=== PATIENT | female | born 1945 | race Caucasian/White ===

== ENCOUNTER → 2017-02-18 | Outpatient (REF) | payer MEDICARE, BC ==
[~2017-02-18] MED LIST: ACET160S3 PO; ACET160S5 PO; AMLO5TAB2 PO; ASPI81CH PO; AVAP300T23 PO; CALC600T71 PO; CENTTAB47 PO; CHLO25TA PO; COLA100C3 PO; CORE3.12 PO; LORA2CON5 PO; LORT5TAB PO; OMEG12002 PO; SPIR25TA2 PO; SYST1SOL OD; TYLE325T5 PO; VITA1CAP2 PO; VITA500C24 PO; [UNRECOGNIZED DRUG - CODE] PO; [UNRECOGNIZED DRUG - CODE] TOP
== END ==
LOC: M SFHCPLAZ 14:15
PROVIDERS: ATTEND Dermatology
DX: C44.602 Unspecified malignant neoplasm of skin of right upper limb, including shoulder (principal); L57.0 Actinic keratosis
CPT/HCPCS: 11100; 11101; 88305; G0463

== ENCOUNTER → 2017-04-16 | Outpatient (REF) | payer MEDICARE, BC | LOC: M LAB REF 16:30 | PROVIDERS: ATTEND Surgery | DX: D23.61 Other benign neoplasm of skin of right upper limb, including shoulder (principal) ==

== ENCOUNTER → 2021-07-17 | Outpatient (CLI) | payer MEDICARE, BC ==
[~2021-07-17] MED LIST changes: +ACET-1439 PO; -ACET160S5 PO; +AMLO1TAB24 PO; -AMLO5TAB2 PO; -ASPI81CH PO; +ASPI81CH49 PO; +CALC1TAB5 PO; -CALC600T71 PO; +CHLO125TA PO; -CHLO25TA PO; -COLA100C3 PO; +COLA100C5 PO; +MAGN400C2 PO; +META28.32 PO; +SPIR-10 PO; -SPIR25TA2 PO; +TUMS750C5 PO; +VITA-183 PO; -VITA1CAP2 PO
[2021-07-17 15:24] VITALS: BP 150/78
--- NOTE | 2021-07-22 16:36 | ROOPDOC ---
[facility] Report Of Operation Report of Operation DATE OF PROCEDURE: 07/17/2021 DIAGNOSIS: Left abnormal axillary lymph node PROCEDURE: Ultrasound guided left abnormal axillary lymph node biopsy with clip placement SURGEON: Deanna Brooks BLOOD LOSS: minimal COMPLICATIONS: none Lidocaine 1% LOT [id number] Expiration 12/2024 Sodium Bicarbonate 8.4% LOT [id number] Expiration 11/2021 Hydromark clip LOT [id number] Expiration 01/2024 SHAPE 4 Bx device: TEMNO 18G x 20 cm LOT [id number] Expiration 11/2024 Informed consent was obtained. The most common risk and possible complications including bleeding, hematoma, bruising, infection, injury to surrounding structures were explained to the patient and the patient expressed und erstanding. Patient was placed on the bed in the supine position. Appropriate time out was done stating patients name, date of , and the procedure to be performed. The left axilla was prepped and draped in the usual fashion. The ultrasound was used to confirm the location of enlarged lymph node with cortex measuring over 4 mm. Plain Lidocaine 1% and 8.4% sodium bicarbonate 10:1 mix was used to anesthetize the skin, the biopsy site and tissues along the anticipated biopsy tract. Small skin incision was made with blade number 11. Temno 18G cannula with introducer was inserted through the incision and advanced under the ultrasound guidance to position immediately adjacent to the enlarged lymph node with 4 mm cortex. Next, the introducer was removed and Temno 18G biopsy device was places in the cannula. Pre-biopsy imaging, and post-biopsy imaging were captured. Five good core biopsies were taken at various levels of the lesion. Specimen was placed in formaldehyde, labeled with appropriate biopsy site and patients name, and sent to pathology for evaluation. Next, the biopsy device and cannula were withdrawn and a clip introducer was inserted into the position immediately adjacent to the biopsied lymph node. The SHAPE 4 Hydromark clip was deployed under sonographic guidance. Post-clip placement image was captured. Manual pressure over the biopsy cavity and tract was held after the clip introducer was withdrawn. No bleeding was noted upon removal of the pressure. Post-procedure mammogram was not done as the clip was visible in the lymph node and there is low probability that this lymph node will be seen on the mammogram. Postprocedural dressing was placed. Patient tolerated procedure well. Discharge instructions were discussed with the patient and the patient expressed understanding. DEANNA BROOKS DO Jul 22, 2021 16:36
== END ==
LOC: M WHCPRO 09:07
PROVIDERS: ATTEND Surgery
DX: Z01.811 Encounter for preprocedural respiratory examination (principal); C50.912 Malignant neoplasm of unspecified site of left female breast; I51.7 Cardiomegaly; I70.0 Atherosclerosis of aorta; M85.80 Other specified disorders of bone density and structure, unspecified site

== ENCOUNTER → 2021-07-17 | Outpatient (CLI) | payer MEDICARE, BC ==
--- NOTE | 2021-07-17 13:05 | REP ---
INDICATION: ENCOUNTER FOR PREPROCEDURAL RESPIRATORY EXAMINATION COMPARISON: 12/17/2018. TECHNIQUE: PA/Lateral FINDINGS: Lungs: Clear, no infiltrate. Heart: Mildly enlarged. Mediastinum: Calcific plaque is seen in the thoracic aorta. The mediastinal silhouette is unchanged. Pleural angles: Unremarkable.. Bones and soft tissues: There is osteopenia. IMPRESSION: No acute pulmonary disease. Mild cardiomegaly. <Electronically signed by Bert Barbosa > 07/17/21 [id number]
== END ==
LOC: M PLAIMG 12:36
PROVIDERS: ATTEND Surgery
DX: Z01.811 Encounter for preprocedural respiratory examination (principal); I51.7 Cardiomegaly; I70.0 Atherosclerosis of aorta; M85.80 Other specified disorders of bone density and structure, unspecified site

== ENCOUNTER → 2021-08-01 | Outpatient (CLI) | payer MEDICARE, BC ==
[~2021-08-01] MED LIST changes: +ASPECRE TOP; +CALCCAP4 PO; +LAMI1SPR EX; +MULTTAB61 PO
== END ==
LOC: M LABSMTC 11:27
PROVIDERS: ATTEND Anesthesiology
DX: Z01.812 Encounter for preprocedural laboratory examination (principal); Z20.822 Contact with and (suspected) exposure to COVID-19

== ENCOUNTER 2021-08-06 07:03 | Day surgery (SDC) | payer MEDICARE, BC ==
[~2021-08-06] VITALS: Ht 161.5 cm; Wt 80.3 kg
[~2021-08-06 07:03] MED LIST changes: +HEPARIN SOD (PORCINE) 5000UNITS/ML 1ML VIAL/SYRINGE SQ ONE; +LR 1,000 ML IV ONE; +ceFAZolin SOD 2 GM in IV 1 EA IV ONE
[2021-08-06] MEDS ORDERED: dexameTHASONE 4 MG/ML 1ML VIAL (J1100 PER 1MG) As Ordered ONE (08:09)
[2021-08-06] MEDS ORDERED: propofoL 200 MG/20 ML VIAL As Ordered ONE (08:09)
[2021-08-06] MEDS ORDERED: LIDOCAINE 2% 100MG/5ML SDV (FOR ANES.) As Ordered ONE (08:09)
[2021-08-06] MEDS ORDERED: METOCLOPRAMIDE INJ 10MG/2ML VIAL (J2765 PER 1) As Ordered ONE (08:09)
[2021-08-06] MEDS ORDERED: fentaNYL 100 MCG/2 ML INJECTION (J3010) As Ordered ONE ×2 (08:09→10:33)
[2021-08-06] MEDS ORDERED: ONDANSETRON 4MG/2ML VIAL As Ordered ONE (08:09)
[2021-08-06] MEDS ORDERED: MIDAZOLAM INJ 2MG/2ML VIAL (J2250 PER 1MG) As Ordered ONE (08:09)
[2021-08-06] MEDS ORDERED: LIDOCAINE 1% SDV 30ML VIAL As Ordered ONE (09:34)
[2021-08-06] MEDS ORDERED: BUPIVACAINE HCL 0.25% 30ML VIAL As Ordered ONE (09:34)
[2021-08-06] MEDS ORDERED: LABETALOL 100MG/20ML VIAL As Ordered ONE (10:08)
[2021-08-06] MEDS ORDERED: ACETAMINOPHEN 1000MG 100ML IV BTL (OFIRMEV) (J0131 PER 10MG) As Ordered ONE (10:12)
[2021-08-06] MEDS ORDERED: ULTR50TA8 PO (12:46)
[2021-08-06] MEDS ORDERED: ONDANSETRON 4MG/2ML VIAL IV PRN (12:55)
[2021-08-06] MEDS ORDERED: fentaNYL 100 MCG/2 ML INJECTION (J3010) IV PRN (12:55)
[2021-08-06] MEDS ORDERED: oxyCODONE 5MG TAB PO PRN (12:55)
[2021-08-06] MEDS ORDERED: LR 1,000 ML IV SCH (12:55)
[2021-08-06 13:30] VITALS: BP 156/73
--- NOTE | 2021-08-11 21:49 | ROOPDOC ---
[facility] Report Of Operation Report of Operation DATE OF PROCEDURE: 08/11/21 PREPROCEDURE DIAGNOSES: Left breast cancer POSTPROCEDURE DIAGNOSES: same PROCEDURE PERFORMED: Left breast lumpectomy with intraop wire placement and interpretation of intraop radiography of the specimen SURGEON: Dr Deanna Brooks ANESTHESIA: general ESTIMATED BLOOD LOSS: Approximately 25 mL. COMPLICATIONS: none REMARKS: nonhydromark clip identified in the specimen PROCEDURE NOTE: INDICATIONS: Ms. Rivero is a 76-year-old woman who was found to have a suspicious left breast mass. This was evaluated with diagnostic imaging and sonographic correlate was found. US guided biopsy of the left breast mass done at [facility] came back as Left breast cancer, IDC ER/AZ +, Her2 negative. Nonhydromark clip was placed in the mass. She underwent MRI of the breast an no additional suspicious lesions were seen. On exam there was more prominent left axillary lymph node noted with some irregular and mildly enlarged cortex. This was biopsied and no malignancy was found. We have discussed surgical options and she opted for breast conservative surgery. Due to patients age she opted out of sentinel lymph node biopsy per [employer]. She was medically cleared for surgery by her primary care doctor. Risks and possible complications of surgical procedure including bleeding, infection and injury to surrounding structures were explained to the patient and she wished to proceed. Consent was signed. My initials were placed on the operative site. Subcutaneous injection of 5000 units of heparin was done in Preop. DETAILS: Patient was taken to the operating room and placed on the operating room table. A sign in was called stating patients name, date of and the procedure to be done. Preoperative antibiotics were infused. Smooth induction of general anesthesia was done. Patients hands were extended on arm rests. Care was taken not to over extend the arms. Pillow was placed under the knees and a foam was placed under the heels. Sequential compression devices were placed and assured to function correctly. Procedure was started with left breast intraop wire localization. Appropriate time out was done and patients name, date of , and the procedure to be done were confirmed. Left breast was cleaned by me. Intraoperative ultrasound was used to confirm location of the mass. Location of the clip was marked on the skin as well. 21 G K[place]ans Breast Lesion Localization Needle was used to place 25 cm wire through the lesion. The end of the wire was passed a centimeter deep. The images were captured confirming adequate placement of the localizing wire. Project Admin assisted with the wire placement. Next, our attention was turned toward the left breast. Left breast and axilla were cleaned again and second time out was done. Local anesthetic using 1% lidocaine and 0.25 % Marcaine 50/50 mix was injected at the site of planned periareolar incision. The incision was made with the scalpel. Subcutaneous skin flaps were raised and the guide wire was carefully pulled into the wound. Dissection was carries along the wire until the previously marked on the skin area of target lesion location was encountered. At this point, wider excision of the tissue surrounding the wire was done. The mass was identified in the tissue with intraoperative hockey stick ultrasound probe. The end of the wire was identified with palpation. The lumpectomy specimen was carefully removed from the breast keeping its proper orientation and moved to the back table where margins were marked with the surgical inking kit following the standard colors recommendations. Specimen was then placed on the grid and placed in [employer] Specimen Imaging System. The image revealed the wire and the clip and the mass in the specimen. The specimen was labeled with patients name and left lumpectomy and sent to pathology. The specimen measured 6x4x3 cm. Upon examination of intraop specimen radiography, it was noted that all margins except deep margin appear relatively close. Decision was made to excise additional margins: inferior, superior, medial, anterior and lateral. All new margins, defined as margin farthest away from lumpectomy cavity, were marked with black ink. Each margin was sent as a separate specimen with appropriate labeling. Wound was thoroughly irrigated. Adequate hemostasis was assured. Additional local anesthetic was injected into surrounding tissues. Five clips were placed to randall the cavity. space was approximated with 2-0 Vicryl. The dermis was closed with 3-0 Vicryl and skin was closed with 4-0 Monocryl. Surgical glue was placed over the incision. Patient emerged from the anesthesia without any problems. Fluffs were placed over the operative site and patients chest was wrapped snuggly in the RENY wrap. Sponge and instrument counts were done and were correct. Patient tolerated procedure well and was taken to recovery unit in stable condition. DEANNA BROOKS DO Aug 11, 2021 21:49
== END 2021-08-06 14:15 | disposition home or self-care (01) ==
LOC: M SDC 07:03
PROVIDERS: ATTEND Surgery
DX: C50.912 Malignant neoplasm of unspecified site of left female breast (principal); R59.0 Localized enlarged lymph nodes; Z17.0 Estrogen receptor positive status [ER+]; Z80.9 Family history of malignant neoplasm, unspecified; Z92.29 Personal history of other drug therapy; Z79.01 Long term (current) use of anticoagulants; Z88.8 Allergy status to other drugs, medicaments and biological substances; I10 Essential (primary) hypertension; F41.9 Anxiety disorder, unspecified
CPT/HCPCS: 19125; 36415; 76942; 86850; 86900; 86901; 88305; 88307; J0131; J0690; J1100; J1644; J2250; J2405; J2765; J3010

== ENCOUNTER → 2021-09-05 | Outpatient (CLI) | payer MEDICARE, BC ==
[~2021-09-05] MED LIST changes: +CENT1TAB7 PO; -HEPARIN SOD (PORCINE) 5000UNITS/ML 1ML VIAL/SYRINGE SQ ONE; -LR 1,000 ML IV ONE; +ULTR50TA8 PO; -ceFAZolin SOD 2 GM in IV 1 EA IV ONE
--- NOTE | 2021-09-05 12:55 | RADONC.CN ---
Radiation Oncology Hx/Consult Radiation Oncology Consult Date of Service: Sep 05, 2021 Pt Identifier Abby Rivero is a 76 year old female with screening mammogram detected left breast cancer [id number] ER/NM+ HER2- grade 2. She is s/p lumpectomy without SLNB with Dr. Brooks on 08/06/21 and she is seen for consideration of adjuvant RT. Diagnosis/Treatment History Oncologic History 06/14/21 Mammogram with left 2:00 asymmetry 06/24/21 US showing 1.9 cm mass in this location, biopsy showing IDC ER/NM+ HER2- grade 2 07/05/21 MRI 2.2 left 2:00 lesion, no lymphadenopathy 07/17/21 Left axillary node biopsy negative ([place]) 08/06/21 Lumpectomy without SLNB showing pT2NX margins negative Breast history: OCP x 6 years Menses @ 12 Menopause @ 44 (surgical) No HRT No IVF Interval History Here with her supportive daughter. She reports no residual tenderness or pain in the left breast. She has no impaired ROM post-operatively. Her appetite has been off, she attributes to stress. She has baseline anxiety/depression and joint pains, which are functionally limiting, because of these conditions and the possible side effects of AI, she is hesitant to take an AI. Past Medical History: Anxiety/depression GERD HPL HTN Osteoarthritis DVT TMJ Past Surgical History: Hysterectomy Ventral hernia repair Family History: Paternal grandmother colon cancer Social History: Never smoker Never drinker Allergies / Meds Allergies: Coded Allergies: naproxen (Verified Adverse Reaction, Mild, DECREASE ENERGY, SHE FEELS "OFF", 08/05/21) Home Meds Active Scripts Tramadol HCl (Ultram) 50 Mg Tablet, 50 MG PO Q6H PRN for PAIN MDD 4, #10 TAB MDD 4 Prov:DEANNA BROOKS DO 08/06/21 Reported Medications Multivitamin/Iron/Folic Acid (Centrum Women Tablet) 1 Each Tablet, 1 EACH PO BID, TAB 09/05/21 Trolamine Salicylate/Aloe Vera (Aspercreme 10% Cream) 10% Cream..g., 1 APLCT TOP PRN for 14 Days, #35.4 GRAM 07/29/21 Calcium Carbonate (Tums) 300 Mg Tab.chew, 750 MG PO PRN, CHW 07/29/21 Chlorthalidone (Chlorthalidone) 25 Mg Tablet, 1 TAB PO DAILY for 30 Days, #30 TAB 07/29/21 Calcium Carbonate/Vitamin D3 (Calcium 600 + Vit D 400 Softgl) 1 Each Capsule, 1 CAP PO BID for 30 Days, #60 CAP 07/29/21 Terbinafine HCl (Lamisil) 125 Ml [place], 1 % EX PRN, CONTAINER 07/29/21 Magnesium Oxide (Magnesium) 400 Mg Capsule, 1 CAP PO DAILY for constipation for 30 Days, #30 CAP 07/17/21 Psyllium Husk (with Sugar) (Metamucil Powder) 575 Gm Powder, 3 TBS PO DAILY for 30 Days, ML 07/17/21 Ascorbic Acid (Vitamin C) 500 Mg Cap, 1 TAB PO DAILY, CAP 01/09/15 Lorazepam (Lorazepam) 2 Mg/Ml Con, 1 MG PO DAILY PRN for ANXIETY, CON 01/09/15 Spironolactone (Spironolactone) 25 Mg Tab, 25 MG PO DAILY, TAB 01/09/15 Amlodipine Besylate (Amlodipine Besylate) 5 Mg Tab, 1 TAB PO DAILY, TAB 01/09/15 Irbesartan (Avapro) 300 Mg Tab, 1 TAB PO DAILY, TAB 01/09/15 Carvedilol (Coreg) 3.125 Mg Tab, 1 TAB PO BID, TAB 01/09/15 Propylene Glycol/Peg 400 (Systane 0.3-0.4% Eye Drops) 15 Ml Liz, 3 DROP OD BID, LIZ 01/09/15 Discontinued Reported Medications Multivitamin (Multivitamins) 1 Each Tablet, 1 TAB PO DAILY, TAB 07/29/21 Review of Systems Constitutional: Reports: Fatigue; Denies: Weight Loss HEENT: Denies: Head Aches Skin: Denies: Rash Pulmonary: Denies: Dyspnea Cardiovascular: Denies: Chest Pain Breast: Denies: New Breast Lumps / Masses, Nipple Retraction, Nipple Discharge, Breast Skin Changes Gastrointestinal: Denies: Abdominal Pain Musculoskeletal: Reports: Joint pain; Denies: Neck pain, Back pain Neurological: Denies: Weakness, Numbness Psych: Reports: Mood Normal Vital Signs Ht 64" Wt 172 lbs BMI 29.5 T 98 P 64 RR 18 BP 165/74 O2 99% Pain 0 Fatigue 3 General Exam: Alert, Cooperative, No Acute Distress Eye Exam: PERRLA, EOMI ENT EXAM: Atraumatic Neck Exam: Supple; Negative: Lymphadenopathy Chest Exam: Clear to auscultation Heart Exam: Rate Normal Breast Exam: Symmetric Bilaterally (ptosis); Negative: Lumps or Masses (Palpable seroma left central breast. No axillary masses BL. No right breast lesions. ) Extremity Exam: Negative: Edema Skin Exam: Nl turgor and temperature Neuro Exam: Normal Gait, Normal Speech, Cranial Nerves 3-12 NL Psych Exam: Mental status NL Diagnostic and Laboratory Diagnostic Review Radiologic images, relevant labs and pathology reports were personally reviewed and discussed with Ms. Rivero. Assessment and Plan Impression Ms. Rivero is a 76 year old female with a history of screening mammogram detected left breast cancer [id number] ER/NM+ HER2- grade 2. She is s/p lumpectomy without SLNB with Dr. Brooks on 08/06/21 and she is seen for consideration of adjuvant RT. Stage left upper outer breast cancer [id number] ER/NM+ HER2- grade 2 IDC Performance Status ECOG 1 Plan We had an extensive discussion with Ms. Rivero regarding the diagnosis at hand and available therapeutic options. She expressed several concerns regarding toxicity of treatment, so we focused on risk versus benefit. The benefit is reduced risk in breast recurrence, there is no OS benefit in her age group. The risks are skin reaction, fibrosis, and fatigue. I discussed that omission of RT would be appropriate given her age and pathology. The only complicating factory is that she stated she is hesitant to take the AI for fear of side effects. I encouraged her to try the AI at least, given that if there are side effects they are likely to resolve if she discont inues the medication. For radiation as an alternative to omission I think she would be appropriate for partial breast RT given her aversion to side effects. I discussed 40 Gy in 15 fractions per IMPORT LOW versus 26 Gy in 5 fractions per FAST FORWARD. The control rates appear equivalent with these regimens however the 15 fraction regimen is older and better studied. We discussed the logistics of receiving radiation therapy in detail including the need for a 1-time planning session. After discussing the risks, benefits and alternatives to radiation therapy, Ms. Rivero was amenable to considering RT further prior to deciding. She will alert us of her ultimate decision regarding RT. All questions were answered to the patient's satisfaction. We instructed the patient that if there were any questions,concerns or changes in clinical status in the interim to contact us. Recommendations APBI as discussed versus omission of RT, patient to decide and alert us Simulation can be facilitated within a week of her decision Billing Statement Total time of [48] minutes was spent preparing for the visit [3], obtaining HPI [7], examining the patient [4], reviewing diagnostic tests [3], discussing management options [22], coordinating care [2], and writing this note [7]. HAO HOLM MD Sep 05, 2021 12:55
== END ==
LOC: M ONCR 09:59
PROVIDERS: ATTEND General Practice
DX: C50.412 Malignant neoplasm of upper-outer quadrant of left female breast (principal); Z88.8 Allergy status to other drugs, medicaments and biological substances; Z79.891 Long term (current) use of opiate analgesic

== ENCOUNTER → 2021-09-11 | Outpatient (CLI) | payer MEDICARE, BC ==
--- NOTE | 2021-09-11 14:09 | RADENCPD ---
Date/Time of Encounter Date of Encounter: Sep 11, 2021 Time of Encounter: 14:07 Encounter Abby came in to discuss her RT course. I answered additional questions regarding the efficacy data supporting partial breast RT as well as questions about the magnitude and time course of side effects. She was pleased and will proceed with planning on Thursday. HAO HOLM MD Sep 11, 2021 14:09
== END ==
LOC: M ONCR 12:58
PROVIDERS: ATTEND General Practice
DX: C50.919 Malignant neoplasm of unspecified site of unspecified female breast (principal)

== ENCOUNTER 2021-09-16 13:02 | Outpatient (RCR) | payer MEDICARE, BC | END 2021-09-24 | LOC: M ONCR 13:02 | PROVIDERS: ATTEND General Practice | DX: C50.412 Malignant neoplasm of upper-outer quadrant of left female breast (principal) ==

== ENCOUNTER 2021-10-03 12:00 | Outpatient (RCR) | payer MEDICARE, BC | END 2021-10-25 | LOC: M ONCR 12:00 | PROVIDERS: ATTEND General Practice | DX: C50.412 Malignant neoplasm of upper-outer quadrant of left female breast (principal); M25.569 Pain in unspecified knee; G89.29 Other chronic pain ==

== ENCOUNTER → 2022-04-02 | Outpatient (CLI) | payer MEDICARE, BC | LOC: M ONCR 10:06 | PROVIDERS: ATTEND General Practice | DX: C50.412 Malignant neoplasm of upper-outer quadrant of left female breast (principal); Z92.3 Personal history of irradiation; Z88.6 Allergy status to analgesic agent; Z79.899 Other long term (current) drug therapy ==

== ENCOUNTER → 2022-06-16 | Outpatient (CLI) | payer MEDICARE, BC | LOC: M WHC 12:39 | PROVIDERS: ATTEND Surgery | DX: Z85.3 Personal history of malignant neoplasm of breast (principal) | CPT/HCPCS: 77066; G0279 ==

== ENCOUNTER → 2023-04-02 | Outpatient (CLI) | payer MEDICARE, BC | LOC: M ONCR 09:55 | PROVIDERS: ATTEND General Practice | DX: Z08 Encounter for follow-up examination after completed treatment for malignant neoplasm (principal); Z85.3 Personal history of malignant neoplasm of breast; N60.32 Fibrosclerosis of left breast; Z71.2 Person consulting for explanation of examination or test findings; Z79.891 Long term (current) use of opiate analgesic; Z79.899 Other long term (current) drug therapy; Z88.6 Allergy status to analgesic agent; Z92.3 Personal history of irradiation ==

== ENCOUNTER → 2023-05-12 | Outpatient (CLI) | payer MEDICARE, BC | LOC: M WHC 13:52 | PROVIDERS: ATTEND Internal Medicine | DX: R42 Dizziness and giddiness (principal); I65.23 Occlusion and stenosis of bilateral carotid arteries ==

== ENCOUNTER → 2023-06-18 | Outpatient (CLI) | payer MEDICARE, BC | LOC: M WHC 09:11 | PROVIDERS: ATTEND Nurse Practitioner Women's Health | DX: Z85.3 Personal history of malignant neoplasm of breast (principal) | CPT/HCPCS: 77066; G0279 ==

== ENCOUNTER → 2024-04-05 | Outpatient (CLI) | payer MEDICARE, BC ==
[~2024-04-05] MED LIST changes: +ECOT81TA5 PO; +SYST1SOL4 OP
== END ==
LOC: M ONCR 10:50
PROVIDERS: ATTEND General Practice
DX: Z08 Encounter for follow-up examination after completed treatment for malignant neoplasm (principal); Z85.3 Personal history of malignant neoplasm of breast; Z71.2 Person consulting for explanation of examination or test findings; Z79.82 Long term (current) use of aspirin; Z79.899 Other long term (current) drug therapy; Z88.6 Allergy status to analgesic agent; Z92.3 Personal history of irradiation

== ENCOUNTER → 2024-06-21 | Outpatient (CLI) | payer MEDICARE, BC | LOC: M WHC 09:34 | PROVIDERS: ATTEND Nurse Practitioner Women's Health | DX: Z85.3 Personal history of malignant neoplasm of breast (principal); R92.323 Mammographic fibroglandular density, bilateral breasts | CPT/HCPCS: 77066; G0279 ==

== ENCOUNTER → 2025-03-15 | Outpatient (CLI) | payer MEDICARE, BC | LOC: M WHC 07:31 | PROVIDERS: ATTEND Internal Medicine Medical Oncology | DX: C50.912 Malignant neoplasm of unspecified site of left female breast (principal); R92.312 Mammographic fatty tissue density, left breast; R59.0 Localized enlarged lymph nodes; N63.20 Unspecified lump in the left breast, unspecified quadrant | CPT/HCPCS: 76642; 77066; G0279 ==

== ENCOUNTER → 2025-05-23 | Outpatient (CLI) | payer MEDICARE, BC ==
[~2025-05-23] MED LIST changes: +LORA1TAB23 PO; +TRAM50TA2 PO
== END ==
LOC: M ONCM 09:03
PROVIDERS: ATTEND Dietitian, Registered
DX: C50.912 Malignant neoplasm of unspecified site of left female breast (principal); Z71.3 Dietary counseling and surveillance; Z68.28 Body mass index [BMI] 28.0-28.9, adult

== ENCOUNTER 2025-05-25 10:28 | Observation (INO) | payer MEDICARE, BC ==
[2025-05-25] VITALS (8 sets, daily range): BP systolic 122–157; BP diastolic 57–73; TEMP 97.7–98.6; O2SAT 93–99
[~2025-05-25] VITALS: Ht 165.1 cm; Wt 75.6 kg
[~2025-05-25 10:28] MED LIST changes: +ACETAMINOPHEN 1000MG/100ML IV BAG As Ordered ONE; +LIDOCAINE 2% 100 MG/5 ML SDV (FOR ANES.) As Ordered ONE; -LORA1TAB23 PO; +ONDANSETRON 4MG 2ML VIAL As Ordered ONE; -TRAM50TA2 PO; +dexAMETHasone 4 MG/ML 1 ML VIAL As Ordered ONE
[2025-05-25] MEDS ORDERED: LR 1,000 ML IV SCH (10:45)
[2025-05-25] MEDS: ceFAZolin SOD 2 GM IV ONCE IV ONE (12:32)
[2025-05-25] MEDS ORDERED: GLYCOPYRROLATE INJ 0.2 MG/ML 2 ML VIAL As Ordered ONE (12:48)
[2025-05-25] MEDS ORDERED: diphenhydrAMINE 50 MG/ML VIAL IV PRN (15:20)
[2025-05-25] MEDS ORDERED: HYDROMORPHONE HCL 0.5 MG/0.5 ML SYRINGE IV PRN (15:20)
[2025-05-25] MEDS: LR 1,000 ML IV SCH ×2 (15:20→15:30)
[2025-05-25] MEDS ORDERED: traMADol 50 MG TAB PO PRN (15:30)
[2025-05-25] MEDS ORDERED: ACETAMINOPHEN 325 MG TAB PO PRN (15:30)
[2025-05-25] MEDS ORDERED: ONDANSETRON 4MG 2ML VIAL IV PRN (15:30)
[2025-05-25] MEDS ORDERED: MIRALAX *UNIT DOSE* 17 GM PACKET PO PRN (15:40)
[2025-05-25] MEDS: DOCUSATE SODIUM 100 MG CAPSULE PO SCH (21:00)
[2025-05-25] MEDS ORDERED: LORA1TAB23 PO (21:57)
[2025-05-25] MEDS ORDERED: HOME MED LIST COMPLETE! XX SCH (22:00)
[2025-05-25] MEDS: IRBESARTAN 150 MG TAB PO SCH (22:56)
[2025-05-26 02:00] VITALS: BP 131/55; TEMP 97.5; O2SAT 97
[2025-05-26 05:03] VITALS: BP 131/57; TEMP 97.9; O2SAT 95
[2025-05-26 08:17] VITALS: BP 137/66; TEMP 98.4; O2SAT 96
[2025-05-26 09:23] VITALS: BP 140/65
[2025-05-26] MEDS: amLODIPine 5 MG TAB PO SCH (09:23)
[2025-05-26] MEDS: SPIRONOLACTONE 25 MG TAB PO SCH (09:23)
[2025-05-26] MEDS ORDERED: TRAM50TA2 PO (10:25)
[2025-05-26 11:58] VITALS: BP 144/64; TEMP 98.6; O2SAT 97
== END 2025-05-26 12:35 | disposition home or self-care (01) ==
LOC: M SDC 10:28 → M MSPAV 10:29
PROVIDERS: ADMIT Surgery; ATTEND Surgery
DX: C50.112 Malignant neoplasm of central portion of left female breast (principal); I10 Essential (primary) hypertension; F41.9 Anxiety disorder, unspecified; F32.A Depression, unspecified; Z92.3 Personal history of irradiation; Z79.82 Long term (current) use of aspirin; Z79.899 Other long term (current) drug therapy; Z88.8 Allergy status to other drugs, medicaments and biological substances
CPT/HCPCS: 14301; 14302; 19302; 88307; 94760; 96360; 96361; 97116; 97161; G0378; J0131; J0690; J1100; J1596; J2405; J3010

== ENCOUNTER → 2025-06-05 | Outpatient (CLI) | payer MEDICARE, BC ==
[~2025-06-05] MED LIST changes: -ACETAMINOPHEN 1000MG/100ML IV BAG As Ordered ONE; -LIDOCAINE 2% 100 MG/5 ML SDV (FOR ANES.) As Ordered ONE; +LORA1TAB23 PO; -ONDANSETRON 4MG 2ML VIAL As Ordered ONE; +TRAM50TA2 PO; -dexAMETHasone 4 MG/ML 1 ML VIAL As Ordered ONE
== END ==
LOC: M WHC 10:28
PROVIDERS: ATTEND Internal Medicine Medical Oncology
DX: Z78.0 Asymptomatic menopausal state (principal); M85.80 Other specified disorders of bone density and structure, unspecified site

== ENCOUNTER → 2025-06-14 | Outpatient (CLI) | payer MEDICARE, BC | LOC: M ONCR 13:31 | PROVIDERS: ATTEND General Practice | DX: C50.012 Malignant neoplasm of nipple and areola, left female breast (principal); C77.3 Secondary and unspecified malignant neoplasm of axilla and upper limb lymph nodes; Z98.890 Other specified postprocedural states; Z92.3 Personal history of irradiation; Z17.0 Estrogen receptor positive status [ER+]; Z17.21 Progesterone receptor positive status; Z17.32 Human epidermal growth factor receptor 2 negative status; Z88.6 Allergy status to analgesic agent; Z79.899 Other long term (current) drug therapy ==

== ENCOUNTER 2025-06-22 10:47 | Outpatient (RCR) | payer MEDICARE, BC | END 2025-06-25 | LOC: M ONCR 10:47 | PROVIDERS: ATTEND General Practice | DX: Z51.0 Encounter for antineoplastic radiation therapy (principal); C50.412 Malignant neoplasm of upper-outer quadrant of left female breast ==

== ENCOUNTER → 2025-07-25 | Outpatient (RCR) | payer MEDICARE, BC | LOC: M ONCR 06-27 09:50 | PROVIDERS: ATTEND General Practice | DX: Z51.0 Encounter for antineoplastic radiation therapy (principal); C50.412 Malignant neoplasm of upper-outer quadrant of left female breast ==

== ENCOUNTER 2025-07-28 12:58 | Outpatient (RCR) | payer MEDICARE, BC ==
[2025-08-23] MEDS ORDERED: TAMO20TA8 PO (08:53)
== END 2025-08-25 ==
LOC: M ONCR 12:58
PROVIDERS: ATTEND General Practice
DX: Z51.0 Encounter for antineoplastic radiation therapy (principal); C50.412 Malignant neoplasm of upper-outer quadrant of left female breast